=== PATIENT | male | born 1955 | race Caucasian/White ===

== ENCOUNTER → 2021-11-08 14:42 | Outpatient (CLI) | payer MEDICAID, SELFPAY ==
--- NOTE | ~2021-11-08 | XR_ITS ---
XR shoulder LT min 2V DATE: 11/08/2021 15:23 INDICATION: Acute left shoulder pain TECHNIQUE: 4 views COMPARISON: None FINDINGS: No fracture or dislocation, periosteal reaction or bone destruction or abnormal left should er soft tissue calcification. IMPRESSION: No significant abnormality Reviewed, dictated and finalized at location A. ODOLOGIST IMPRESSION: No significant abnormality
== END ==
PROVIDERS: PCP Internal Medicine; Visit Provider Internal Medicine
DX: M25.512 Pain in left shoulder (principal)
CPT/HCPCS: 73030